=== PATIENT | female | born 1945 | race Hispanic/Latino ===

== ENCOUNTER 2020-02-01 13:52 | Emergency (ER) | payer MEDICARE, OTHER ==
[~2020-02-01 13:52] MED LIST: ALEN70TA10 PO; CARV6.25 PO; DILT300T11 PO; GLIP5TAB11 PO; METF-444 PO; PRAV40TA3 PO; RIVA20TA PO
[2020-02-01] MEDS ORDERED: ONDANSETRON HCL 4 MG/2 ML VIAL ONE (14:24)
[2020-02-01] MEDS ORDERED: KETOROLAC TROMETHAMINE 15MG/ML ONE (14:24)
[2020-02-01] MEDS ORDERED: MORPHINE SULFATE 2 MG/ML 1ML SYG ONE (14:25)
== END 2020-02-01 15:51 | disposition home or self-care (01) ==
LOC: EDH 13:52
DX: M54.2 Cervicalgia (principal); M54.9 Dorsalgia, unspecified; I10 Essential (primary) hypertension; E11.9 Type 2 diabetes mellitus without complications; Z88.0 Allergy status to penicillin; Z90.710 Acquired absence of both cervix and uterus; V49.49XA Driver injured in collision with other motor vehicles in traffic accident, initial encounter; Y93.89 Activity, other specified; Y92.89 Other specified places as the place of occurrence of the external cause; Y99.8 Other external cause status
CPT/HCPCS: 70450; 71250; 72125; 74176; 96374; 96375; 99285; J1885; J2405

== ENCOUNTER 2020-03-01 17:04 | Inpatient (IN) | payer MEDICARE, OTHER ==
[~2020-03-01] VITALS: Ht 152.4 cm; Wt 49.5 kg
[~2020-03-01 17:04] MED LIST changes: -ALEN70TA10 PO; +ALEN70TA69 PO; +EPINEPHRINE 0.1 MG/ML 10 ML SYG IVP ONE; +ETOMIDATE 2 MG/ML 10 ML VIAL IVP ONE
[2020-03-01 19:36] LABS: BASOPHILS % (AUTO) 0.3 % (0.0-5.0); EOSINOPHILS % (AUTO) 0.1 % (0.0-8.0); HEMATOCRIT 28.7 % (36-48); LYMPHOCYTES % (AUTO) 4.9 % (21.0-51.0); MEAN CORPUSCULAR HEMOGLOBIN 31.3 pg (27.0-33.0); MEAN CORPUSCULAR HGB CONC 34.8 g/dL (32.0-36.0); MEAN CORPUSCULAR VOLUME 89.7 fL (79-99); MONOCYTES % (AUTO) 5.9 % (3.0-13.0); NEUTROPHILS % (AUTO) 87.5 % (40.0-77.0); PLATELET COUNT (AUTO) 291 K/uL (130-400); RED CELL DISTRIBUTION WIDTH 12.7 % (11.0-15.5); WHITE BLOOD COUNT (AUTO) 15.5 K/uL (4.8-10.8)
[2020-03-01 19:49] LABS: CREATININE 0.8 mg/dL (0.5-1.5); INR 1.04 (0.85-1.15); PARTIAL THROMBOPLASTIN TIME 32.9 SEC (26.3-35.5); PROTHROMBIN TIME 11.2 SEC (9.6-11.6)
[2020-03-01] MEDS ORDERED: POTASSIUM CHLORIDE 20 MEQ ERTAB PO ONE (21:01)
[2020-03-01] MEDS ORDERED: HUMAN PROTHROMBIN COMPLX(PCC) 500 UNIT KIT IV SCH (21:15)
[2020-03-01 21:30] VITALS: BP 143/59
[2020-03-01] MEDS ORDERED: TRAM50TA4 PO (22:23)
[2020-03-01] MEDS ORDERED: LOSA100T58 PO (22:26)
[2020-03-01] MEDS ORDERED: MONT10TA26 PO (22:26)
[2020-03-01] MEDS ORDERED: FOLI1TAB61 PO (22:26)
[2020-03-01] MEDS ORDERED: DONE10TA43 PO (22:29)
[2020-03-01] MEDS ORDERED: MECL-160 PO (22:29)
[2020-03-02 00:08] VITALS: BP 133/65
[2020-03-02 04:08] VITALS: BP 110/74
[2020-03-02 05:09] LABS: HEMATOCRIT 28.9 % (36-48); MEAN CORPUSCULAR HEMOGLOBIN 31.4 pg (27.0-33.0); MEAN CORPUSCULAR HGB CONC 34.9 g/dL (32.0-36.0); MEAN CORPUSCULAR VOLUME 89.8 fL (79-99); RED BLOOD CELL COUNT(AUTO) 3.22 MIL/uL (4.00-5.50); RED CELL DISTRIBUTION WIDTH 12.8 % (11.0-15.5); WHITE BLOOD COUNT (AUTO) 16.8 K/uL (4.8-10.8)
--- NOTE | 2020-03-02 05:30 | NUR ---
NOTE CALLED ACCOUNT MANAGEMENT ASSISTANT AND SAID WE CAN BRING PATIENT FOR CT SCAN TO BE DONE. TOOK PATIENT VIA BED.
[2020-03-02 05:43] LABS: ALBUMIN 2.3 g/dL (3.5-5.0); BILIRUBIN,TOTAL 0.4 mg/dL (0.2-1.0); CREATININE 0.8 mg/dL (0.5-1.5); POTASSIUM 4.1 mmol/L (3.5-5.1); TOTAL PROTEIN, SERUM 6.7 g/dL (6.0-8.3)
--- NOTE | 2020-03-02 05:54 | NUR ---
NOTE RETURNED FROM CT SCAN.
--- NOTE | 2020-03-02 07:45 | NUR ---
DR. MEG RAYMUNDO ROUNDING AT THIS TIME. MD REVIEWED CT BRAIN DONE TODAY. MD OKAYED FOR PATIENT TO BE DISCHARGED HOME AND TO HOLD HOME MEDICATION XARELTO AFTER DISCHARGE.
--- NOTE | 2020-03-02 08:00 | NUR ---
PATIENT STATUS PATIENT SITTING UP IN BED EATING BREAKFAST, REPORTS NO PAIN OR DISCOMFORTS. PERFORMED NEUROCHECKS, PUPILS 2 PERRLA, PATIENT ALERT AND ORIENT TO PERSON, PLACE, AND TIME.
[2020-03-02 08:07] VITALS: BP 158/65
--- NOTE | 2020-03-02 08:15 | NUR ---
CHANGE IN PATIENT STATUS HEARD PATIENT CALL FROM HER ROOM "SOMEONE HELP ME". WENT TO PATIENTS ROOM. PATIENT NOT ABLE TO VERBALIZE WHAT SYMPTOMS SHE WAS FEELING. PATIENT APPEARS TO BE GASPING FOR AIR. PATIENT PLACED ON O2 AT 2L PER NC. CALLED RAPID RESPONSE TEAM.
--- NOTE | 2020-03-02 08:20 | NUR ---
CODE BLUE PATIENT UNRESPONSIVE AND NOT BREATHING, CODE BLUE CALLED.
--- NOTE | 2020-03-02 08:30 | NUR ---
DR. Briseida QUILES NOTIFIED OF CODE BLUE
--- NOTE | 2020-03-02 08:34 | NUR ---
DR. MEG RAYMUNDO NOTIFIED OF PATIENT STATUS
[2020-03-02 08:42] LABS: ABG BASE EXCESS -20.9 mmol/L (-2.0-3.0); ABG HCO3 7.2 mmol/L (21.0-28.0); ABG PCO2 24 mmHg (32-45)
--- NOTE | 2020-03-02 09:40 | NUR ---
TIME SPENT W DAUGHTER LATA, UNTIL ARRIVAL OF DAUGHTER ADRIEN. LATA EXPRESSED WISH FOR AUTOPSY- STATED WOULD HAVE TO ASK HER SISTER WHEN SHE CAME. ADVISED SCHOOL BUS DRIVER/CUSTODIAN OF PROBABLE REQUEST FOR AUTOOSPY, WILL FOLLOW UP. Addendum: 03/02/20 at 0957 by JUAN LUIS NAIR RN CM Amended: Links added.
--- NOTE | 2020-03-02 20:52 | NUR ---
late entry 1100 daughter Annette requesting information regarding autopsy inform primary physician did not order on autopsy and information provided regarding Michael zendejas , mean while Dr Lin molder sweep contacted inform of in return requested for JASON Sanchez to be contacted at [phone] to make a decision regarding autopsy or inquest . call place x2 message left. Daughter inform [place] [facility] [place] verbalized understanding . 163 JASON Cano call back information requested by e-mail which was sent 164 update given to Anentte by phone [phone] regarding jason calling back. 193 JASON Cano call back no information received information re e-mail. 2029 jason cano call back states information received and he and DR Lin both agreed on an inquest to be done so body can be release to home of daughter choice . [address] daughter Annette inform of JASON Cano decision and body to be release. Daughter instructed for me to call [facility] [place]. Jose palacios
== END 2020-03-02 08:42 | disposition expired | DRG 83 ==
LOC: EDH 17:04 → EDHIP 19:23 → 3CH 21:02
PROVIDERS: ADMIT Internal Medicine Nephrology; ATTEND Internal Medicine Nephrology
PROC: 5A12012 Performance of Cardiac Output, Single, Manual (ICD-10-PCS; principal; 2020-03-02)
PROC: 0BH17EZ Insertion of Endotracheal Airway into Trachea, Via Natural or Artificial Opening (ICD-10-PCS; 2020-03-02)
DX: S06.6X9A Traumatic subarachnoid hemorrhage with loss of consciousness of unspecified duration, initial encounter (principal); E87.1 Hypo-osmolality and hyponatremia; W06.XXXA Fall from bed, initial encounter; D72.829 Elevated white blood cell count, unspecified; E11.9 Type 2 diabetes mellitus without complications; Z66 Do not resuscitate; I10 Essential (primary) hypertension; S06.2X9A Diffuse traumatic brain injury with loss of consciousness of unspecified duration, initial encounter; I46.9 Cardiac arrest, cause unspecified; Y93.89 Activity, other specified; Y99.8 Other external cause status; Y92.009 Unspecified place in unspecified non-institutional (private) residence as the place of occurrence of the external cause; Z88.0 Allergy status to penicillin; Z88.2 Allergy status to sulfonamides; Z88.5 Allergy status to narcotic agent
CPT/HCPCS: 31500; 36415; 36600; 70450; 72170; 73030; 80048; 80053; 82435; 82803; 82947; 82948; 83605; 84132; 84295; 85018; 85025; 85027; 85610; 85730; 92950; 93005; 99291; G0378; J0171; J3490